=== PATIENT | female | born 1985 | race Caucasian/White ===

== ENCOUNTER 2020-12-15 18:30 | Outpatient (CLI) | payer BC | END 2020-12-15 18:31 | disposition home or self-care (01) | LOC: SLEEPLAB 18:30 | PROVIDERS: ATTEND Family Medicine | DX: G47.9 Sleep disorder, unspecified (principal); G47.33 Obstructive sleep apnea (adult) (pediatric); K21.9 Gastro-esophageal reflux disease without esophagitis; R06.83 Snoring | CPT/HCPCS: 95801 ==